=== PATIENT | male | born 1965 | race Caucasian/White ===

== ENCOUNTER 2020-12-26 15:44 | Inpatient (IN) ==
[2020-12-26 16:46] LABS: Basophils % 0.1 %; Hemoglobin 13.7 g/dL (12.9-16.9); Immature Granulocytes % 0.7 % (0-4); Lymphocytes # 0.6 K/mcL (0.6-4.6); Lymphocytes % 8.5 %; Mean Corpuscular HGB Conc 33.4 g/dL (31.6-35.5); Mean Corpuscular Hemoglobin 31.1 pg (28.0-33.3); Mean Platelet Volume 9.1 fL (9.4-12.4); Monocytes # 0.5 K/mcL (0.0-1.3); Monocytes % 6.9 %; Neutrophils # 6.2 K/mcL (1.6-8.9); Platelet Count 185 K/mcL (140-400); Red Blood Count 4.41 M/mcL (4.19-5.50); Red Cell Distribution Width 13.6 % (11.5-14.5); Segmented Neutrophils % 83.8 %; White Blood Count 7.4 K/mcL (4.3-11.1)
[2020-12-26 17:13] LABS: Alanine Aminotransferase 39 Units/L (7-52); Albumin 4.6 g/dL (3.5-5.7); Albumin/Globulin Ratio 1.6 (1.1-2.2); Alkaline Phosphatase 78 Units/L (34-104); Aspartate Amino Transferase 29 Units/L (13-39); BUN/Creatinine Ratio 16 (6-26); Bilirubin,Direct 0.1 mg/dL (0.0-0.2); Bilirubin,Indirect 0.5 mg/dL (0.0-1.0); Bilirubin,Total 0.6 mg/dL (0.3-1.0); Blood Urea Nitrogen 17 mg/dL (6-20); C-Reactive Protein 154 mg/L (Less than 10); Calcium 8.8 mg/dL (8.6-10.3); Carbon Dioxide 23 mEq/L (23-29); Chloride 99 mEq/L (98-107); Globulin 2.8 g/dL (2.4-3.5); Glucose 138 mg/dL (70-105); Lactate Dehydrogenase 178 Units/L (140-271); Osmolality,Calculated 286 (280-300); Phosphorous 3.2 mg/dL (2.7-4.5); Potassium 3.1 mEq/L (3.5-5.1); Sodium 136 mEq/L (136-145); Total Protein 7.4 g/dL (6.4-8.9); eGFR For African Americans > 60 (> 60); eGFR For Non-African Americans > 60 (> 60)
[2020-12-26] MEDS ORDERED: Isovue-370 500 ML BOTTLE IVP ONE (17:13)
[2020-12-26 17:14] LABS: Ferritin 586 ng/mL (20-250)
[2020-12-26 17:23] LABS: INR 1.2; Prothrombin Time 13.6 Seconds (9.4-12.1)
[2020-12-26 17:25] LABS: Activated Partial Thrombo Time 34.4 Seconds (26.0-36.0)
[2020-12-26] MEDS ORDERED: Aspirin 325 MG TABLET PO ONE (18:41)
[2020-12-27] MEDS: Acetaminophen 325 MG TABLET PO PRN ×2 (04:52→15:01)
[2020-12-27] MEDS ORDERED: Perflutren Lipid Microsphere 1.3 ML in 0.9 % Sodium Chloride 8.7 ML IVP PRN (08:11)
[2020-12-27] MEDS ORDERED: Naloxone 0.4 MG/ML INJ IVP PRN (08:11)
[2020-12-27] MEDS ORDERED: Melatonin 3 MG TABLET PO PRN (08:11)
[2020-12-27] MEDS ORDERED: Ondansetron 4 MG/2 ML VIAL IVP PRN (08:11)
[2020-12-27] MEDS ORDERED: MOM Conc 10 ML UD.LIQ PO PRN (08:11)
[2020-12-27] MEDS ORDERED: Mag Hydrox/Al Hydrox/Simeth 30 ML UDC PO PRN (08:11)
[2020-12-27] MEDS ORDERED: Ipratropium/Albuterol Neb 3 ML IH PRN (08:18)
[2020-12-27] MEDS: Aspirin Enteric Coated 81 MG Tablet PO SCH (09:28)
[2020-12-27] MEDS: allopurinoL 100 MG TABLET PO SCH ×2 (09:28→20:57)
[2020-12-27] MEDS: cefTRIAXone 1,000 MG in 0.9 % Sodium Chloride Mini Bag 100 ML IVPB SCH (09:29)
[2020-12-27] MEDS: Azithromycin 500 MG in 0.9 % Sodium Chloride 250 ML IVPB SCH (10:07)
[2020-12-27 10:33] LABS: Hematocrit 41.6 % (37.5-50.1); Hemoglobin 13.8 g/dL (12.9-16.9); Mean Corpuscular HGB Conc 33.2 g/dL (31.6-35.5); Mean Corpuscular Hemoglobin 31.9 pg (28.0-33.3); Mean Corpuscular Volume 96.3 fL (83.0-100.0); Mean Platelet Volume 9.3 fL (9.4-12.4); Platelet Count 177 K/mcL (140-400); Red Blood Count 4.32 M/mcL (4.19-5.50); White Blood Count 4.4 K/mcL (4.3-11.1)
[2020-12-27 10:58] LABS: BUN/Creatinine Ratio 17 (6-26); Blood Urea Nitrogen 17 mg/dL (6-20); Calcium 8.6 mg/dL (8.6-10.3); Carbon Dioxide 28 mEq/L (23-29); Chloride 101 mEq/L (98-107); Glucose 234 mg/dL (70-105); Magnesium 2.2 mg/dL (1.6-2.6); Osmolality,Calculated 295 (280-300); Potassium 3.1 mEq/L (3.5-5.1); Sodium 138 mEq/L (136-145); Troponin I 0.08 ng/mL (< 0.04); eGFR For African Americans > 60 (> 60); eGFR For Non-African Americans > 60 (> 60)
[2020-12-27] MEDS: Dexamethasone 4 MG/ML VIAL IVP SCH (11:17)
[2020-12-27] MEDS ORDERED: Potassium Chloride Elixir 20 MEQ/15 ML UDC PO ONE (14:09)
[2020-12-27] MEDS ORDERED: Potassium Chloride 20 MEQ, Lidocaine 1% 2 ML in 0.9 % Sodium Chloride 250 ML IVPB ONE (14:09)
[2020-12-27] MEDS ORDERED: *HR* LORazepam 2 MG/ML VIAL IVP PRN ×3 (14:10)
[2020-12-27] MEDS: Folic Acid 1 MG TABLET PO SCH (14:43)
[2020-12-27] MEDS: Thiamine (B-1) 100 MG TABLET PO SCH (14:43)
[2020-12-28 00:59] LABS: Hematocrit 43.6 % (37.5-50.1); Hemoglobin 14.1 g/dL (12.9-16.9); Mean Corpuscular HGB Conc 32.3 g/dL (31.6-35.5); Mean Corpuscular Hemoglobin 30.6 pg (28.0-33.3); Mean Corpuscular Volume 94.6 fL (83.0-100.0); Mean Platelet Volume 8.9 fL (9.4-12.4); Platelet Count 201 K/mcL (140-400); Red Blood Count 4.61 M/mcL (4.19-5.50); Red Cell Distribution Width 13.8 % (11.5-14.5); White Blood Count 3.9 K/mcL (4.3-11.1)
[2020-12-28 01:24] LABS: BUN/Creatinine Ratio 17 (6-26); Blood Urea Nitrogen 17 mg/dL (6-20); Carbon Dioxide 27 mEq/L (23-29); Chloride 104 mEq/L (98-107); Glucose 134 mg/dL (70-105); Osmolality,Calculated 290 (280-300); Sodium 138 mEq/L (136-145); eGFR For African Americans > 60 (> 60); eGFR For Non-African Americans > 60 (> 60)
[2020-12-28] MEDS ORDERED: *HR* Enoxaparin 40 MG/0.4 ML SYRINGE SQ SCH (06:00)
[2020-12-28 07:25] VITALS: BP 137/86
[2020-12-28] MEDS ORDERED: lisinopriL 20 MG TABLET PO SCH (09:00)
[2020-12-28] MEDS ORDERED: (Ezetimibe [Zetia] 10 MG Tablet) PO SCH (09:00)
[2020-12-28] MEDS ORDERED: hydroCHLOROthiazide 25 MG TABLET PO SCH (09:00)
[2020-12-28] MEDS: Dexamethasone 4 MG/ML VIAL IVP SCH (10:48)
[2020-12-28] MEDS: Folic Acid 1 MG TABLET PO SCH (10:50)
[2020-12-28] MEDS: Aspirin Enteric Coated 81 MG Tablet PO SCH (10:50)
[2020-12-28] MEDS: allopurinoL 100 MG TABLET PO SCH (10:50)
[2020-12-28] MEDS: cefTRIAXone 1,000 MG in 0.9 % Sodium Chloride Mini Bag 100 ML IVPB SCH (10:51)
[2020-12-28] MEDS: Azithromycin 500 MG in 0.9 % Sodium Chloride 250 ML IVPB SCH (10:51)
[2020-12-28] MEDS: Thiamine (B-1) 100 MG TABLET PO SCH (11:46)
[2020-12-29] MEDS ORDERED: Azithromycin 250 MG TABLET PO SCH (09:00)
== END 2020-12-28 16:55 | disposition home health service (06) | DRG 177 ==
LOC: 2NENU 15:44 → EMEROOARM 15:44 → SUATTDRO 20:32 → 2NENU 21:17
PROVIDERS: ADMIT Internal Medicine; ATTEND Internal Medicine

== ENCOUNTER 2020-12-30 16:56 | Inpatient (IN) ==
[2020-12-30] MEDS ORDERED: Acetaminophen 325 MG TABLET PO ONE (17:16)
[2020-12-30 17:54] LABS: Basophils % 0.1 %; Hematocrit 40.2 % (37.5-50.1); Hemoglobin 13.5 g/dL (12.9-16.9); Lymphocytes # 0.5 K/mcL (0.6-4.6); Lymphocytes % 6.2 %; Mean Corpuscular HGB Conc 33.6 g/dL (31.6-35.5); Mean Corpuscular Volume 92.2 fL (83.0-100.0); Mean Platelet Volume 9.3 fL (9.4-12.4); Monocytes # 0.4 K/mcL (0.0-1.3); Monocytes % 4.5 %; Neutrophils # 6.8 K/mcL (1.6-8.9); Platelet Count 221 K/mcL (140-400); Red Blood Count 4.36 M/mcL (4.19-5.50); Red Cell Distribution Width 13.8 % (11.5-14.5); Segmented Neutrophils % 88.2 %
[2020-12-30 17:56] LABS: White Blood Count 7.7 K/mcL (4.3-11.1)
[2020-12-30 18:03] LABS: INR 1.2; Prothrombin Time 13.5 Seconds (9.4-12.1)
[2020-12-30 18:05] LABS: Activated Partial Thrombo Time 28.3 Seconds (26.0-36.0)
[2020-12-30 18:17] LABS: Alanine Aminotransferase 75 Units/L (7-52); Albumin 4.2 g/dL (3.5-5.7); Albumin/Globulin Ratio 1.3 (1.1-2.2); Alkaline Phosphatase 65 Units/L (34-104); Aspartate Amino Transferase 59 Units/L (13-39); BUN/Creatinine Ratio 19 (6-26); Bilirubin,Direct 0.1 mg/dL (0.0-0.2); Bilirubin,Indirect 0.4 mg/dL (0.0-1.0); Bilirubin,Total 0.5 mg/dL (0.3-1.0); Blood Urea Nitrogen 16 mg/dL (6-20); C-Reactive Protein 91 mg/L (Less than 10); Calcium 8.8 mg/dL (8.6-10.3); Carbon Dioxide 25 mEq/L (23-29); Chloride 101 mEq/L (98-107); Globulin 3.2 g/dL (2.4-3.5); Glucose 193 mg/dL (70-105); Lactate Dehydrogenase 359 Units/L (140-271); Magnesium 2.2 mg/dL (1.6-2.6); Osmolality,Calculated 292 (280-300); Phosphorous 3.5 mg/dL (2.7-4.5); Potassium 3.6 mEq/L (3.5-5.1); Sodium 138 mEq/L (136-145); Total Protein 7.4 g/dL (6.4-8.9); Troponin I < 0.03 ng/mL (< 0.04); eGFR For African Americans > 60 (> 60); eGFR For Non-African Americans > 60 (> 60)
[2020-12-30 18:35] LABS: Ferritin 1287 ng/mL (20-250)
[2020-12-30 18:40] LABS: Bilirubin,Urine Negative (Negative); Blood,Urine Small (Negative); Clarity,Urine Clear (Clear); Color,Urine Light-Yellow (Yellow); Glucose,Urine (UA) Normal (Normal); Ketones,Urine Negative (Negative); Leukocyte Esterase,Urine Negative (Negative); Mucus,Urine Few per lpf (None-Few); Nitrite,Urine Negative (Negative); PH,Urine 6.5 pH Units (5.0-8.0); Protein,Urine 70 mg/dL (Neg-Trace); RBC,Urine 0-3 per hpf (0-3); Specific Gravity,Urine 1.023 (1.010-1.025); Squamous Epithelial Cell,Urine Few per hpf (None-Few); Urobilinogen,Urine Normal (Normal); WBC,Urine 0-3 per hpf (0-3)
[2020-12-30] MEDS ORDERED: Naloxone 0.4 MG/ML INJ IVP PRN (19:28)
[2020-12-30] MEDS ORDERED: Acetaminophen 325 MG TABLET PO PRN (19:28)
[2020-12-30] MEDS ORDERED: Ondansetron 4 MG/2 ML VIAL IVP PRN (19:28)
[2020-12-30] MEDS ORDERED: Remdesivir 200 MG in 0.9 % Sodium Chloride 100 ML IVPB ONE ×2 (19:30→21:15)
[2020-12-30] MEDS ORDERED: D5% in Water 1,000 ML IVC PRN (19:32)
[2020-12-30] MEDS ORDERED: Dextrose Gel 15 GM/37.5 ML TUBE PO PRN ×2 (19:32)
[2020-12-30] MEDS ORDERED: *HR* Dextrose 50 % in Water (Vial) 50 ML VIAL IVP PRN (19:32)
[2020-12-30 19:35] LABS: ABG Base Excess 2 mEq/L (-2 to 3); ABG HCO3 27 mEq/L (21-27); ABG Oxygen Saturation 95 % (95-98); ABG PCO2 42 mmHg (35-45); ABG PH 7.41 pH Units (7.32-7.45); ABG PO2 77 mmHg (85-104); ABG TCO2 28 mEq/L (20-26); Blood Gas Modality OXYMASK
[2020-12-30] MEDS: Insulin LISPRO 300 UNITS/3 ML VIAL SUBQ SCH ×2 (22:11→22:12)
[2020-12-31 05:33] LABS: Basophils % 0.1 %; Hematocrit 41.2 % (37.5-50.1); Hemoglobin 13.6 g/dL (12.9-16.9); Immature Granulocytes % 0.8 % (0-4); Lymphocytes # 0.6 K/mcL (0.6-4.6); Lymphocytes % 7.9 %; Mean Corpuscular Hemoglobin 30.6 pg (28.0-33.3); Mean Corpuscular Volume 92.8 fL (83.0-100.0); Mean Platelet Volume 9.5 fL (9.4-12.4); Monocytes # 0.4 K/mcL (0.0-1.3); Monocytes % 6.2 %; Neutrophils # 6.1 K/mcL (1.6-8.9); Platelet Count 232 K/mcL (140-400); Red Blood Count 4.44 M/mcL (4.19-5.50); Red Cell Distribution Width 13.8 % (11.5-14.5); White Blood Count 7.1 K/mcL (4.3-11.1)
[2020-12-31 05:42] LABS: INR 1.1; Prothrombin Time 13.1 Seconds (9.4-12.1)
[2020-12-31 05:54] LABS: Alanine Aminotransferase 68 Units/L (7-52); Albumin/Globulin Ratio 1.3 (1.1-2.2); Alkaline Phosphatase 62 Units/L (34-104); Aspartate Amino Transferase 44 Units/L (13-39); BUN/Creatinine Ratio 20 (6-26); Bilirubin,Total 0.4 mg/dL (0.3-1.0); Blood Urea Nitrogen 16 mg/dL (6-20); Calcium 8.9 mg/dL (8.6-10.3); Carbon Dioxide 26 mEq/L (23-29); Chloride 104 mEq/L (98-107); Globulin 3.1 g/dL (2.4-3.5); Glucose 198 mg/dL (70-105); Magnesium 2.5 mg/dL (1.6-2.6); Osmolality,Calculated 295 (280-300); Sodium 139 mEq/L (136-145); Total Protein 7.1 g/dL (6.4-8.9); eGFR For African Americans > 60 (> 60); eGFR For Non-African Americans > 60 (> 60)
[2020-12-31 05:55] LABS: C-Reactive Protein 92 mg/L (Less than 10); Lactate Dehydrogenase 347 Units/L (140-271)
[2020-12-31 06:11] LABS: Ferritin 1234 ng/mL (20-250)
[2020-12-31] MEDS: Aspirin Enteric Coated 81 MG Tablet PO SCH (08:42)
[2020-12-31] MEDS: lisinopriL 10 MG TABLET PO SCH (08:42)
[2020-12-31] MEDS: Insulin LISPRO 300 UNITS/3 ML VIAL SUBQ SCH ×5 (08:43→21:06)
[2020-12-31] MEDS: allopurinoL 100 MG TABLET PO SCH ×2 (08:43→20:47)
[2020-12-31] MEDS: *HR* Enoxaparin 40 MG/0.4 ML SYRINGE SQ SCH (08:43)
[2020-12-31] MEDS: Dexamethasone 4 MG/ML VIAL IVP SCH (08:43)
[2020-12-31] MEDS: hydroCHLOROthiazide 25 MG TABLET PO SCH (08:43)
[2020-12-31] MEDS: Azithromycin 500 MG in 0.9 % Sodium Chloride 250 ML IVPB SCH (08:44)
[2020-12-31 13:34] LABS: Estimated Average Glucose 126 mg/dl
[2020-12-31] MEDS: Remdesivir 100 MG in 0.9 % Sodium Chloride 100 ML IVPB SCH (20:48)
[2020-12-31] MEDS: Melatonin 3 MG TABLET PO PRN (23:21)
[2021-01-01] MEDS: lisinopriL 10 MG TABLET PO SCH (09:08)
[2021-01-01] MEDS: Azithromycin 500 MG in 0.9 % Sodium Chloride 250 ML IVPB SCH (09:09)
[2021-01-01] MEDS: hydroCHLOROthiazide 25 MG TABLET PO SCH (09:09)
[2021-01-01] MEDS: allopurinoL 100 MG TABLET PO SCH ×2 (09:09→22:21)
[2021-01-01] MEDS: Aspirin Enteric Coated 81 MG Tablet PO SCH (09:09)
[2021-01-01] MEDS: *HR* Enoxaparin 40 MG/0.4 ML SYRINGE SQ SCH (09:09)
[2021-01-01] MEDS: Insulin LISPRO 300 UNITS/3 ML VIAL SUBQ SCH ×3 (09:16→22:21)
[2021-01-01] MEDS: Dexamethasone 4 MG/ML VIAL IVP SCH (09:31)
[2021-01-01 09:44] LABS: Basophils % 0.2 %; Hematocrit 45.9 % (37.5-50.1); Lymphocytes # 1.4 K/mcL (0.6-4.6); Mean Corpuscular HGB Conc 32.9 g/dL (31.6-35.5); Mean Corpuscular Hemoglobin 31.3 pg (28.0-33.3); Mean Platelet Volume 9.8 fL (9.4-12.4); Monocytes # 0.6 K/mcL (0.0-1.3); Monocytes % 4.1 %; Neutrophils # 11.5 K/mcL (1.6-8.9); Platelet Count 321 K/mcL (140-400); Red Blood Count 4.83 M/mcL (4.19-5.50); Red Cell Distribution Width 13.7 % (11.5-14.5); Segmented Neutrophils % 84.7 %
[2021-01-01 09:45] LABS: White Blood Count 13.6 K/mcL (4.3-11.1)
[2021-01-01 09:46] LABS: Hemoglobin 15.1 g/dL (12.9-16.9)
[2021-01-01 09:57] LABS: BUN/Creatinine Ratio 24 (6-26); Blood Urea Nitrogen 21 mg/dL (6-20); Calcium 9.5 mg/dL (8.6-10.3); Carbon Dioxide 29 mEq/L (23-29); Chloride 99 mEq/L (98-107); Glucose 154 mg/dL (70-105); Magnesium 2.3 mg/dL (1.6-2.6); Osmolality,Calculated 294 (280-300); Phosphorous 4.1 mg/dL (2.7-4.5); Potassium 3.7 mEq/L (3.5-5.1); Sodium 139 mEq/L (136-145); eGFR For African Americans > 60 (> 60); eGFR For Non-African Americans > 60 (> 60)
[2021-01-01] MEDS ORDERED: Perflutren Lipid Microsphere 1.3 ML in 0.9 % Sodium Chloride 8.7 ML IVP PRN (13:05)
[2021-01-01 15:07] LABS: Thyroid Stimulating Hormone 1.489 mcIU/mL (0.340-5.600)
[2021-01-01] MEDS: Remdesivir 100 MG in 0.9 % Sodium Chloride 100 ML IVPB SCH (22:22)
[2021-01-01] MEDS ORDERED: Furosemide 40 MG/4 ML VIAL IVP ONE (22:59)
[2021-01-01] MEDS ORDERED: Furosemide 40 MG/4 ML VIAL ONE (23:04)
[2021-01-02 05:10] LABS: Basophils % 0.3 %; Hematocrit 42.4 % (37.5-50.1); Hemoglobin 13.8 g/dL (12.9-16.9); Immature Granulocytes % 1.9 % (0-4); Lymphocytes # 0.7 K/mcL (0.6-4.6); Lymphocytes % 7.6 %; Mean Corpuscular HGB Conc 32.5 g/dL (31.6-35.5); Mean Corpuscular Volume 95.3 fL (83.0-100.0); Mean Platelet Volume 9.5 fL (9.4-12.4); Monocytes # 0.5 K/mcL (0.0-1.3); Monocytes % 5.5 %; Neutrophils # 8.1 K/mcL (1.6-8.9); Platelet Count 318 K/mcL (140-400); Red Blood Count 4.45 M/mcL (4.19-5.50); Red Cell Distribution Width 13.7 % (11.5-14.5); Segmented Neutrophils % 84.7 %; White Blood Count 9.6 K/mcL (4.3-11.1)
[2021-01-02 05:18] LABS: BUN/Creatinine Ratio 23 (6-26); Blood Urea Nitrogen 23 mg/dL (6-20); Calcium 8.8 mg/dL (8.6-10.3); Carbon Dioxide 33 mEq/L (23-29); Chloride 99 mEq/L (98-107); Glucose 184 mg/dL (70-105); Magnesium 2.3 mg/dL (1.6-2.6); Osmolality,Calculated 298 (280-300); Phosphorous 4.5 mg/dL (2.7-4.5); Sodium 140 mEq/L (136-145); eGFR For African Americans > 60 (> 60); eGFR For Non-African Americans > 60 (> 60)
[2021-01-02 05:20] LABS: Albumin 3.9 g/dL (3.5-5.7); Albumin/Globulin Ratio 1.3 (1.1-2.2); Bilirubin,Direct 0.2 mg/dL (0.0-0.2); Bilirubin,Indirect 0.5 mg/dL (0.0-1.0); Bilirubin,Total 0.7 mg/dL (0.3-1.0); Globulin 2.9 g/dL (2.4-3.5); Total Protein 6.8 g/dL (6.4-8.9)
[2021-01-02] MEDS: Insulin LISPRO 300 UNITS/3 ML VIAL SUBQ SCH ×4 (09:39→21:17)
[2021-01-02] MEDS: *HR* Enoxaparin 40 MG/0.4 ML SYRINGE SQ SCH (09:40)
[2021-01-02] MEDS: lisinopriL 10 MG TABLET PO SCH (09:40)
[2021-01-02] MEDS: hydroCHLOROthiazide 25 MG TABLET PO SCH (09:41)
[2021-01-02] MEDS: Dexamethasone 4 MG/ML VIAL IVP SCH (09:41)
[2021-01-02] MEDS: Furosemide 20 MG/2 ML VIAL IVP SCH (09:42)
[2021-01-02] MEDS: allopurinoL 100 MG TABLET PO SCH ×2 (09:42→21:16)
[2021-01-02] MEDS: Aspirin Enteric Coated 81 MG Tablet PO SCH (09:43)
[2021-01-02] MEDS: Remdesivir 100 MG in 0.9 % Sodium Chloride 100 ML IVPB SCH (21:36)
[2021-01-03 06:00] LABS: Basophils % 0.4 %; Hematocrit 43.2 % (37.5-50.1); Immature Granulocytes % 2.3 % (0-4); Lymphocytes % 8.5 %; Mean Corpuscular HGB Conc 32.4 g/dL (31.6-35.5); Mean Corpuscular Hemoglobin 30.9 pg (28.0-33.3); Mean Corpuscular Volume 95.4 fL (83.0-100.0); Mean Platelet Volume 9.7 fL (9.4-12.4); Monocytes # 0.6 K/mcL (0.0-1.3); Monocytes % 5.3 %; Platelet Count 354 K/mcL (140-400); Red Blood Count 4.53 M/mcL (4.19-5.50); Red Cell Distribution Width 13.8 % (11.5-14.5); Segmented Neutrophils % 83.5 %; White Blood Count 11.2 K/mcL (4.3-11.1)
[2021-01-03 06:05] LABS: Neutrophils # 9.4 K/mcL (1.6-8.9)
[2021-01-03 06:22] LABS: BUN/Creatinine Ratio 36 (6-26); Blood Urea Nitrogen 35 mg/dL (6-20); Calcium 9.2 mg/dL (8.6-10.3); Carbon Dioxide 34 mEq/L (23-29); Chloride 100 mEq/L (98-107); Glucose 183 mg/dL (70-105); Magnesium 2.7 mg/dL (1.6-2.6); Osmolality,Calculated 307 (280-300); Phosphorous 4.3 mg/dL (2.7-4.5); Potassium 4.6 mEq/L (3.5-5.1); Sodium 142 mEq/L (136-145); eGFR For African Americans > 60 (> 60); eGFR For Non-African Americans > 60 (> 60)
[2021-01-03 06:25] LABS: Albumin 3.8 g/dL (3.5-5.7); Albumin/Globulin Ratio 1.3 (1.1-2.2); Bilirubin,Direct 0.2 mg/dL (0.0-0.2); Bilirubin,Indirect 0.5 mg/dL (0.0-1.0); Bilirubin,Total 0.7 mg/dL (0.3-1.0); Globulin 2.9 g/dL (2.4-3.5); Total Protein 6.7 g/dL (6.4-8.9)
[2021-01-03 06:29] LABS: Platelet Estimate Normal (Normal); Reactive Lymphocytes Present (Not Present)
[2021-01-03] MEDS: Aspirin Enteric Coated 81 MG Tablet PO SCH (08:02)
[2021-01-03] MEDS: allopurinoL 100 MG TABLET PO SCH ×2 (08:02→22:10)
[2021-01-03] MEDS: Dexamethasone 4 MG/ML VIAL IVP SCH (08:03)
[2021-01-03] MEDS: *HR* Enoxaparin 40 MG/0.4 ML SYRINGE SQ SCH (08:03)
[2021-01-03] MEDS: Furosemide 20 MG/2 ML VIAL IVP SCH (08:03)
[2021-01-03] MEDS: lisinopriL 10 MG TABLET PO SCH (08:03)
[2021-01-03] MEDS: Insulin LISPRO 300 UNITS/3 ML VIAL SUBQ SCH ×4 (08:04→22:11)
[2021-01-03] MEDS: Budesonide/Formoterol 160/4.5 1 PUFF INH IH SCH (19:40)
[2021-01-03] MEDS: Remdesivir 100 MG in 0.9 % Sodium Chloride 100 ML IVPB SCH (22:10)
[2021-01-03] MEDS: Insulin DETEMIR 100 UNIT/ML X5UNITS SUBQ SCH (22:11)
[2021-01-04 04:47] LABS: Basophils # 0.1 K/mcL (0.0-0.2); Basophils % 0.4 %; Hematocrit 39.5 % (37.5-50.1); Hemoglobin 12.9 g/dL (12.9-16.9); Immature Granulocytes % 1.7 % (0-4); Lymphocytes # 1.1 K/mcL (0.6-4.6); Lymphocytes % 6.6 %; Mean Corpuscular HGB Conc 32.7 g/dL (31.6-35.5); Mean Corpuscular Hemoglobin 30.3 pg (28.0-33.3); Mean Corpuscular Volume 92.7 fL (83.0-100.0); Mean Platelet Volume 9.5 fL (9.4-12.4); Monocytes # 0.8 K/mcL (0.0-1.3); Monocytes % 4.8 %; Neutrophils # 13.9 K/mcL (1.6-8.9); Platelet Count 369 K/mcL (140-400); Red Blood Count 4.26 M/mcL (4.19-5.50); Red Cell Distribution Width 13.5 % (11.5-14.5); Segmented Neutrophils % 86.5 %; White Blood Count 16.1 K/mcL (4.3-11.1)
[2021-01-04 05:01] LABS: Fibrinogen 573 mg/dL (169-393)
[2021-01-04 05:02] LABS: D-Dimer 2135 ng/mLFEU (0-500)
[2021-01-04 05:03] LABS: BUN/Creatinine Ratio 41 (6-26); Blood Urea Nitrogen 35 mg/dL (6-20); Calcium 8.8 mg/dL (8.6-10.3); Carbon Dioxide 33 mEq/L (23-29); Chloride 101 mEq/L (98-107); Glucose 186 mg/dL (70-105); Magnesium 2.5 mg/dL (1.6-2.6); Osmolality,Calculated 303 (280-300); Phosphorous 4.1 mg/dL (2.7-4.5); Potassium 4.3 mEq/L (3.5-5.1); Sodium 140 mEq/L (136-145); eGFR For African Americans > 60 (> 60); eGFR For Non-African Americans > 60 (> 60)
[2021-01-04 05:08] LABS: Lactate Dehydrogenase 574 Units/L (140-271)
[2021-01-04 05:25] LABS: Ferritin > 1500 ng/mL (20-250)
[2021-01-04] MEDS: Budesonide/Formoterol 160/4.5 1 PUFF INH IH SCH ×2 (07:37→20:38)
[2021-01-04] MEDS: Insulin DETEMIR 100 UNIT/ML X5UNITS SUBQ SCH ×2 (07:39→20:41)
[2021-01-04] MEDS: Furosemide 20 MG/2 ML VIAL IVP SCH (07:39)
[2021-01-04] MEDS: lisinopriL 10 MG TABLET PO SCH (07:40)
[2021-01-04] MEDS: Aspirin Enteric Coated 81 MG Tablet PO SCH (07:41)
[2021-01-04] MEDS: *HR* Enoxaparin 40 MG/0.4 ML SYRINGE SQ SCH (07:41)
[2021-01-04] MEDS: Insulin LISPRO 300 UNITS/3 ML VIAL SUBQ SCH ×4 (07:41→20:41)
[2021-01-04] MEDS: allopurinoL 100 MG TABLET PO SCH ×2 (07:41→20:40)
[2021-01-04] MEDS: Dexamethasone 4 MG/ML VIAL IVP SCH (07:42)
[2021-01-04] MEDS: Sennosides/Docusate Sodium TABLET PO SCH (20:40)
[2021-01-05 06:49] LABS: Basophils # 0.1 K/mcL (0.0-0.2); Basophils % 0.3 %; Eosinophils % 0.1 %; Hematocrit 42.6 % (37.5-50.1); Hemoglobin 13.5 g/dL (12.9-16.9); Immature Granulocytes % 1.5 % (0-4); Lymphocytes # 1.1 K/mcL (0.6-4.6); Lymphocytes % 6.1 %; Mean Corpuscular HGB Conc 31.7 g/dL (31.6-35.5); Mean Corpuscular Hemoglobin 29.9 pg (28.0-33.3); Mean Corpuscular Volume 94.5 fL (83.0-100.0); Mean Platelet Volume 9.8 fL (9.4-12.4); Monocytes # 0.6 K/mcL (0.0-1.3); Monocytes % 3.1 %; Neutrophils # 16.1 K/mcL (1.6-8.9); Platelet Count 376 K/mcL (140-400); Red Blood Count 4.51 M/mcL (4.19-5.50); Red Cell Distribution Width 13.5 % (11.5-14.5); Segmented Neutrophils % 88.9 %; White Blood Count 18.2 K/mcL (4.3-11.1)
[2021-01-05] MEDS: Budesonide/Formoterol 160/4.5 1 PUFF INH IH SCH ×2 (07:15→21:35)
[2021-01-05 07:44] LABS: Albumin 3.7 g/dL (3.5-5.7); Albumin/Globulin Ratio 1.3 (1.1-2.2); Bilirubin,Direct 0.2 mg/dL (0.0-0.2); Bilirubin,Indirect 0.7 mg/dL (0.0-1.0); Bilirubin,Total 0.9 mg/dL (0.3-1.0); Globulin 2.9 g/dL (2.4-3.5); Total Protein 6.6 g/dL (6.4-8.9)
[2021-01-05] MEDS: Insulin LISPRO 300 UNITS/3 ML VIAL SUBQ SCH ×7 (08:04→19:58)
[2021-01-05] MEDS: *HR* Enoxaparin 40 MG/0.4 ML SYRINGE SQ SCH (08:05)
[2021-01-05] MEDS: Aspirin Enteric Coated 81 MG Tablet PO SCH (08:05)
[2021-01-05] MEDS: allopurinoL 100 MG TABLET PO SCH ×2 (08:05→19:59)
[2021-01-05] MEDS: lisinopriL 10 MG TABLET PO SCH (08:05)
[2021-01-05] MEDS: Sennosides/Docusate Sodium TABLET PO SCH ×2 (08:05→19:59)
[2021-01-05] MEDS: Dexamethasone 4 MG/ML VIAL IVP SCH (08:06)
[2021-01-05] MEDS: Furosemide 20 MG/2 ML VIAL IVP SCH ×2 (08:06→19:59)
[2021-01-05 09:00] LABS: BUN/Creatinine Ratio 39 (6-26); Blood Urea Nitrogen 31 mg/dL (6-20); Carbon Dioxide 29 mEq/L (23-29); Chloride 102 mEq/L (98-107); Glucose 149 mg/dL (70-105); Magnesium 2.4 mg/dL (1.6-2.6); Osmolality,Calculated 301 (280-300); Phosphorous 4.2 mg/dL (2.7-4.5); Potassium 4.6 mEq/L (3.5-5.1); Sodium 141 mEq/L (136-145); eGFR For African Americans > 60 (> 60); eGFR For Non-African Americans > 60 (> 60)
[2021-01-05] MEDS: Insulin DETEMIR 100 UNIT/ML X5UNITS SUBQ SCH ×2 (11:17→19:57)
[2021-01-05] MEDS ORDERED: 0.9 % Sodium Chloride 250 ML ONE (14:05)
[2021-01-06] MEDS: Insulin LISPRO 300 UNITS/3 ML VIAL SUBQ SCH ×7 (07:29→21:23)
[2021-01-06] MEDS: Furosemide 20 MG/2 ML VIAL IVP SCH (07:39)
[2021-01-06] MEDS: *HR* Enoxaparin 40 MG/0.4 ML SYRINGE SQ SCH (07:39)
[2021-01-06] MEDS: Dexamethasone 4 MG/ML VIAL IVP SCH (07:39)
[2021-01-06] MEDS: Insulin DETEMIR 100 UNIT/ML X5UNITS SUBQ SCH ×2 (07:39→21:23)
[2021-01-06] MEDS: allopurinoL 100 MG TABLET PO SCH ×2 (07:40→21:23)
[2021-01-06] MEDS: Sennosides/Docusate Sodium TABLET PO SCH ×2 (07:40→21:22)
[2021-01-06] MEDS: Aspirin Enteric Coated 81 MG Tablet PO SCH (07:40)
[2021-01-06] MEDS: lisinopriL 10 MG TABLET PO SCH (07:40)
[2021-01-06] MEDS: Budesonide/Formoterol 160/4.5 1 PUFF INH IH SCH ×2 (08:27→20:30)
[2021-01-06 09:20] LABS: Basophils % 0.2 %; Eosinophils % 0.2 %; Hematocrit 43.2 % (37.5-50.1); Hemoglobin 14.2 g/dL (12.9-16.9); Immature Granulocytes % 1.6 % (0-4); Lymphocytes # 0.9 K/mcL (0.6-4.6); Lymphocytes % 5.1 %; Mean Corpuscular HGB Conc 32.9 g/dL (31.6-35.5); Mean Corpuscular Hemoglobin 31.1 pg (28.0-33.3); Mean Corpuscular Volume 94.7 fL (83.0-100.0); Mean Platelet Volume 9.6 fL (9.4-12.4); Monocytes # 0.4 K/mcL (0.0-1.3); Monocytes % 2.2 %; Neutrophils # 16.4 K/mcL (1.6-8.9); Platelet Count 339 K/mcL (140-400); Red Blood Count 4.56 M/mcL (4.19-5.50); Red Cell Distribution Width 13.7 % (11.5-14.5); Segmented Neutrophils % 90.7 %
[2021-01-06 09:40] LABS: BUN/Creatinine Ratio 35 (6-26); Blood Urea Nitrogen 30 mg/dL (6-20); Calcium 9.1 mg/dL (8.6-10.3); Carbon Dioxide 34 mEq/L (23-29); Chloride 98 mEq/L (98-107); Glucose 129 mg/dL (70-105); Magnesium 2.4 mg/dL (1.6-2.6); Osmolality,Calculated 294 (280-300); Phosphorous 3.9 mg/dL (2.7-4.5); Potassium 4.3 mEq/L (3.5-5.1); Sodium 138 mEq/L (136-145); eGFR For African Americans > 60 (> 60); eGFR For Non-African Americans > 60 (> 60)
[2021-01-07] MEDS: Insulin LISPRO 300 UNITS/3 ML VIAL SUBQ SCH ×9 (08:24→21:32)
[2021-01-07] MEDS: Dexamethasone 4 MG/ML VIAL IVP SCH (08:25)
[2021-01-07] MEDS: Furosemide 20 MG/2 ML VIAL IVP SCH (08:26)
[2021-01-07] MEDS: allopurinoL 100 MG TABLET PO SCH ×2 (08:27→21:30)
[2021-01-07] MEDS: Sennosides/Docusate Sodium TABLET PO SCH ×2 (08:27→21:30)
[2021-01-07] MEDS: Aspirin Enteric Coated 81 MG Tablet PO SCH (08:27)
[2021-01-07] MEDS: lisinopriL 10 MG TABLET PO SCH (08:27)
[2021-01-07] MEDS: *HR* Enoxaparin 40 MG/0.4 ML SYRINGE SQ SCH (08:28)
[2021-01-07] MEDS: Insulin DETEMIR 100 UNIT/ML X5UNITS SUBQ SCH ×2 (08:33→21:31)
[2021-01-07 09:27] LABS: Fibrinogen 432 mg/dL (169-393)
[2021-01-07 09:53] LABS: D-Dimer 22919 ng/mLFEU (0-500)
[2021-01-07 10:22] LABS: Albumin 3.4 g/dL (3.5-5.7); Albumin/Globulin Ratio 1.2 (1.1-2.2); Bilirubin,Direct 0.2 mg/dL (0.0-0.2); Bilirubin,Indirect 0.6 mg/dL (0.0-1.0); Bilirubin,Total 0.8 mg/dL (0.3-1.0); Globulin 2.9 g/dL (2.4-3.5); Magnesium 2.3 mg/dL (1.6-2.6); Phosphorous 3.7 mg/dL (2.7-4.5); Total Protein 6.3 g/dL (6.4-8.9)
[2021-01-07] MEDS: Budesonide/Formoterol 160/4.5 1 PUFF INH IH SCH ×2 (10:37→20:52)
[2021-01-07] MEDS ORDERED: Enoxaparin Weight Dosing SQ SCH (11:45)
[2021-01-07] MEDS ORDERED: Isovue-370 500 ML BOTTLE IVP ONE (11:49)
[2021-01-07] MEDS: Melatonin 3 MG TABLET PO PRN (21:30)
[2021-01-08 01:28] LABS: Basophils # 0.1 K/mcL (0.0-0.2); Basophils % 0.3 %; Eosinophils % 0.1 %; Hematocrit 39.2 % (37.5-50.1); Hemoglobin 12.9 g/dL (12.9-16.9); Immature Granulocytes % 2.3 % (0-4); Lymphocytes # 0.5 K/mcL (0.6-4.6); Lymphocytes % 2.9 %; Mean Corpuscular HGB Conc 32.9 g/dL (31.6-35.5); Mean Corpuscular Hemoglobin 31.2 pg (28.0-33.3); Mean Corpuscular Volume 94.9 fL (83.0-100.0); Mean Platelet Volume 9.4 fL (9.4-12.4); Monocytes # 0.4 K/mcL (0.0-1.3); Neutrophils # 16.9 K/mcL (1.6-8.9); Platelet Count 263 K/mcL (140-400); Red Blood Count 4.13 M/mcL (4.19-5.50); Red Cell Distribution Width 13.6 % (11.5-14.5); Segmented Neutrophils % 92.4 %; White Blood Count 18.3 K/mcL (4.3-11.1)
[2021-01-08 01:49] LABS: BUN/Creatinine Ratio 41 (6-26); Blood Urea Nitrogen 30 mg/dL (6-20); Calcium 8.4 mg/dL (8.6-10.3); Carbon Dioxide 27 mEq/L (23-29); Chloride 100 mEq/L (98-107); Glucose 138 mg/dL (70-105); Magnesium 2.4 mg/dL (1.6-2.6); Osmolality,Calculated 290 (280-300); Potassium 4.6 mEq/L (3.5-5.1); Sodium 136 mEq/L (136-145); eGFR For African Americans > 60 (> 60); eGFR For Non-African Americans > 60 (> 60)
[2021-01-08] MEDS ORDERED: *HR* Enoxaparin 40 MG/0.4 ML SYRINGE SQ SCH (06:00)
[2021-01-08] MEDS: Budesonide/Formoterol 160/4.5 1 PUFF INH IH SCH ×2 (08:03→20:01)
[2021-01-08] MEDS: Insulin LISPRO 300 UNITS/3 ML VIAL SUBQ SCH ×7 (10:38→21:46)
[2021-01-08] MEDS: Dexamethasone 4 MG/ML VIAL IVP SCH (10:59)
[2021-01-08] MEDS: Furosemide 20 MG/2 ML VIAL IVP SCH (11:00)
[2021-01-08] MEDS: lisinopriL 10 MG TABLET PO SCH (11:01)
[2021-01-08] MEDS: Sennosides/Docusate Sodium TABLET PO SCH ×2 (11:01→21:46)
[2021-01-08] MEDS: allopurinoL 100 MG TABLET PO SCH ×2 (11:01→21:46)
[2021-01-08] MEDS: Aspirin Enteric Coated 81 MG Tablet PO SCH (11:01)
[2021-01-08] MEDS: Insulin DETEMIR 100 UNIT/ML X5UNITS SUBQ SCH ×2 (12:00→21:46)
[2021-01-08] MEDS ORDERED: *HR* Heparin 5,000 UNIT/ML VIAL IVP ONE (14:20)
[2021-01-08] MEDS ORDERED: *HR* Heparin 5,000 UNIT/ML VIAL IVP PRN ×2 (14:20)
[2021-01-08] MEDS: Heparin 25,000UNIT/250ML 1/2NS 25,000 UNIT/250 ML IV.SOLN IVC SCH (15:00)
[2021-01-08 15:22] LABS: Mean Platelet Volume 9.5 fL (9.4-12.4); Red Cell Distribution Width 13.6 % (11.5-14.5)
[2021-01-08 15:23] LABS: Hematocrit 44.3 % (37.5-50.1); Hemoglobin 14.3 g/dL (12.9-16.9); Mean Corpuscular HGB Conc 32.3 g/dL (31.6-35.5); Mean Corpuscular Hemoglobin 30.5 pg (28.0-33.3); Mean Corpuscular Volume 94.5 fL (83.0-100.0); Platelet Count 286 K/mcL (140-400); Red Blood Count 4.69 M/mcL (4.19-5.50); White Blood Count 25.5 K/mcL (4.3-11.1)
[2021-01-08 15:24] LABS: Heparin anti-factor XA UFH 0.12 IU/mL (0.30-0.70); INR 1.1; Prothrombin Time 12.7 Seconds (9.4-12.1)
[2021-01-08] MEDS: levoFLOXacin 750 MG/150 ML 750 MG/150 ML BAG IVPB SCH (17:38)
[2021-01-08] MEDS: Melatonin 3 MG TABLET PO PRN (21:46)
[2021-01-09] MEDS: Budesonide/Formoterol 160/4.5 1 PUFF INH IH SCH ×2 (08:17→22:31)
[2021-01-09] MEDS: Insulin LISPRO 300 UNITS/3 ML VIAL SUBQ SCH ×7 (09:00→20:54)
[2021-01-09] MEDS: Heparin 25,000UNIT/250ML 1/2NS 25,000 UNIT/250 ML IV.SOLN IVC SCH (09:03)
[2021-01-09] MEDS: Sennosides/Docusate Sodium TABLET PO SCH ×2 (09:05→20:53)
[2021-01-09] MEDS: allopurinoL 100 MG TABLET PO SCH ×2 (09:05→20:53)
[2021-01-09] MEDS: Aspirin Enteric Coated 81 MG Tablet PO SCH (09:05)
[2021-01-09] MEDS: Furosemide 20 MG/2 ML VIAL IVP SCH (09:05)
[2021-01-09] MEDS: Dexamethasone Sodium Phos/PF 10 MG/ML VIAL IVP SCH (09:05)
[2021-01-09] MEDS: Insulin DETEMIR 100 UNIT/ML X5UNITS SUBQ SCH ×2 (09:07→20:53)
[2021-01-09] MEDS: levoFLOXacin 750 MG/150 ML 750 MG/150 ML BAG IVPB SCH (17:01)
[2021-01-10] MEDS: Heparin 25,000UNIT/250ML 1/2NS 25,000 UNIT/250 ML IV.SOLN IVC SCH ×3 (01:35→18:52)
[2021-01-10] MEDS: Budesonide/Formoterol 160/4.5 1 PUFF INH IH SCH (07:30)
[2021-01-10] MEDS: Insulin LISPRO 300 UNITS/3 ML VIAL SUBQ SCH ×6 (07:39→22:03)
[2021-01-10] MEDS: Aspirin Enteric Coated 81 MG Tablet PO SCH (08:38)
[2021-01-10] MEDS: Sennosides/Docusate Sodium TABLET PO SCH ×2 (08:39→20:30)
[2021-01-10] MEDS: Dexamethasone Sodium Phos/PF 10 MG/ML VIAL IVP SCH (08:39)
[2021-01-10] MEDS: allopurinoL 100 MG TABLET PO SCH ×2 (08:39→20:30)
[2021-01-10] MEDS: Loratadine 10 MG TABLET PO SCH (08:39)
[2021-01-10] MEDS: Insulin DETEMIR 100 UNIT/ML X5UNITS SUBQ SCH (08:44)
[2021-01-10] MEDS ORDERED: Furosemide 40 MG/4 ML VIAL IVP SCH (09:00)
[2021-01-10 10:30] LABS: Hematocrit 45.6 % (37.5-50.1); Hemoglobin 15.1 g/dL (12.9-16.9); Mean Corpuscular HGB Conc 33.1 g/dL (31.6-35.5); Mean Corpuscular Hemoglobin 31.4 pg (28.0-33.3); Mean Corpuscular Volume 94.8 fL (83.0-100.0); Mean Platelet Volume 9.5 fL (9.4-12.4); Platelet Count 299 K/mcL (140-400); Red Blood Count 4.81 M/mcL (4.19-5.50); Red Cell Distribution Width 13.8 % (11.5-14.5); White Blood Count 24.1 K/mcL (4.3-11.1)
[2021-01-10 10:39] LABS: VBG HCO3 31 mEq/L (21-27); VBG PCO2 55 mmHg (41-51); VBG PH 7.36 pH Units (7.32-7.42); VBG PO2 43 mmHg (25-50)
[2021-01-10 10:49] LABS: BUN/Creatinine Ratio 29 (6-26); Blood Urea Nitrogen 29 mg/dL (6-20); Calcium 8.9 mg/dL (8.6-10.3); Carbon Dioxide 30 mEq/L (23-29); Chloride 96 mEq/L (98-107); Glucose 144 mg/dL (70-105); Magnesium 2.3 mg/dL (1.6-2.6); Osmolality,Calculated 290 (280-300); Potassium 4.5 mEq/L (3.5-5.1); Sodium 136 mEq/L (136-145); eGFR For African Americans > 60 (> 60); eGFR For Non-African Americans > 60 (> 60)
[2021-01-10 12:35] LABS: Neutrophils # 24.1 K/mcL (1.6-8.9); Platelet Estimate Normal (Normal)
[2021-01-10] MEDS: levoFLOXacin 750 MG/150 ML 750 MG/150 ML BAG IVPB SCH (13:36)
[2021-01-10] MEDS: Ipratropium 1 PUFF INHALER IH SCH ×2 (19:46→23:48)
[2021-01-10] MEDS: Furosemide 40 MG/4 ML VIAL IVP SCH (20:30)
[2021-01-11 00:32] LABS: Basophils # 0.1 K/mcL (0.0-0.2); Basophils % 0.7 %; Eosinophils % 0.2 %; Hematocrit 40.9 % (37.5-50.1); Hemoglobin 13.6 g/dL (12.9-16.9); Immature Granulocytes % 4.8 % (0-4); Lymphocytes # 0.6 K/mcL (0.6-4.6); Mean Corpuscular HGB Conc 33.3 g/dL (31.6-35.5); Mean Corpuscular Hemoglobin 30.3 pg (28.0-33.3); Mean Corpuscular Volume 91.1 fL (83.0-100.0); Mean Platelet Volume 9.6 fL (9.4-12.4); Monocytes # 0.5 K/mcL (0.0-1.3); Monocytes % 2.6 %; Platelet Count 285 K/mcL (140-400); Red Blood Count 4.49 M/mcL (4.19-5.50); Red Cell Distribution Width 13.9 % (11.5-14.5); Segmented Neutrophils % 88.7 %; White Blood Count 20.4 K/mcL (4.3-11.1)
[2021-01-11 00:49] LABS: BUN/Creatinine Ratio 34 (6-26); Blood Urea Nitrogen 33 mg/dL (6-20); Calcium 8.4 mg/dL (8.6-10.3); Carbon Dioxide 29 mEq/L (23-29); Chloride 98 mEq/L (98-107); Glucose 138 mg/dL (70-105); Magnesium 2.5 mg/dL (1.6-2.6); Osmolality,Calculated 289 (280-300); Phosphorous 4.1 mg/dL (2.7-4.5); Potassium 4.1 mEq/L (3.5-5.1); Sodium 135 mEq/L (136-145); eGFR For African Americans > 60 (> 60); eGFR For Non-African Americans > 60 (> 60)
[2021-01-11] MEDS: Ipratropium 1 PUFF INHALER IH SCH ×6 (03:47→23:49)
[2021-01-11] MEDS ORDERED: Doxycycline 100 MG in 0.9 % Sodium Chloride Mini Bag 100 ML IVPB SCH (07:21)
[2021-01-11] MEDS: Aspirin Enteric Coated 81 MG Tablet PO SCH (08:29)
[2021-01-11] MEDS: allopurinoL 100 MG TABLET PO SCH ×2 (08:29→22:39)
[2021-01-11] MEDS: Sennosides/Docusate Sodium TABLET PO SCH ×2 (08:29→22:39)
[2021-01-11] MEDS: Loratadine 10 MG TABLET PO SCH (08:29)
[2021-01-11] MEDS: lisinopriL 5 MG TABLET PO SCH (08:29)
[2021-01-11] MEDS: Dexamethasone Sodium Phos/PF 10 MG/ML VIAL IVP SCH (08:30)
[2021-01-11] MEDS: Furosemide 40 MG/4 ML VIAL IVP SCH ×2 (08:30→22:38)
[2021-01-11] MEDS: Insulin LISPRO 300 UNITS/3 ML VIAL SUBQ SCH ×4 (08:31→21:58)
[2021-01-11] MEDS: Insulin DETEMIR 100 UNIT/ML X5UNITS SUBQ SCH (08:33)
[2021-01-11] MEDS ORDERED: cefTRIAXone 1,000 MG in Water for inj. (sterile) 10 ML IVP SCH (09:00)
[2021-01-11] MEDS: Heparin 25,000UNIT/250ML 1/2NS 25,000 UNIT/250 ML IV.SOLN IVC SCH (12:00)
[2021-01-11] MEDS: Zinc Sulfate 220 MG CAPSULE PO SCH (12:01)
[2021-01-11] MEDS: Cholecalciferol (D-3) 1,000 UNIT (25MCG) TABLET PO SCH (12:01)
[2021-01-11] MEDS: Ascorbic Acid 500 MG TABLET PO SCH ×2 (12:02→22:39)
[2021-01-11] MEDS: levoFLOXacin 750 MG/150 ML 750 MG/150 ML BAG IVPB SCH (15:00)
[2021-01-12 01:17] LABS: Basophils # 0.1 K/mcL (0.0-0.2); Basophils % 0.7 %; Eosinophils % 0.1 %; Hematocrit 42.2 % (37.5-50.1); Hemoglobin 13.5 g/dL (12.9-16.9); Immature Granulocytes % 4.8 % (0-4); Lymphocytes # 0.9 K/mcL (0.6-4.6); Lymphocytes % 4.5 %; Mean Corpuscular Hemoglobin 30.1 pg (28.0-33.3); Mean Corpuscular Volume 94.2 fL (83.0-100.0); Mean Platelet Volume 9.7 fL (9.4-12.4); Monocytes # 0.5 K/mcL (0.0-1.3); Monocytes % 2.6 %; Platelet Count 271 K/mcL (140-400); Red Blood Count 4.48 M/mcL (4.19-5.50); Red Cell Distribution Width 13.9 % (11.5-14.5); Segmented Neutrophils % 87.3 %; White Blood Count 20.7 K/mcL (4.3-11.1)
[2021-01-12 01:29] LABS: BUN/Creatinine Ratio 39 (6-26); Blood Urea Nitrogen 30 mg/dL (6-20); Calcium 6.9 mg/dL (8.6-10.3); Carbon Dioxide 24 mEq/L (23-29); Chloride 106 mEq/L (98-107); Glucose 129 mg/dL (70-105); Magnesium 2.1 mg/dL (1.6-2.6); Osmolality,Calculated 296 (280-300); Potassium 3.7 mEq/L (3.5-5.1); Sodium 139 mEq/L (136-145); eGFR For African Americans > 60 (> 60); eGFR For Non-African Americans > 60 (> 60)
[2021-01-12] MEDS: Ipratropium 1 PUFF INHALER IH SCH ×6 (03:30→23:28)
[2021-01-12] MEDS: Heparin 25,000UNIT/250ML 1/2NS 25,000 UNIT/250 ML IV.SOLN IVC SCH ×2 (03:49→22:04)
[2021-01-12] MEDS: Insulin LISPRO 300 UNITS/3 ML VIAL SUBQ SCH ×4 (07:54→20:08)
[2021-01-12] MEDS: Aspirin Enteric Coated 81 MG Tablet PO SCH (09:02)
[2021-01-12] MEDS: Loratadine 10 MG TABLET PO SCH (09:02)
[2021-01-12] MEDS: lisinopriL 5 MG TABLET PO SCH (09:03)
[2021-01-12] MEDS: Ascorbic Acid 500 MG TABLET PO SCH ×2 (09:03→20:43)
[2021-01-12] MEDS: allopurinoL 100 MG TABLET PO SCH ×2 (09:03→20:43)
[2021-01-12] MEDS: Zinc Sulfate 220 MG CAPSULE PO SCH (09:03)
[2021-01-12] MEDS: Sennosides/Docusate Sodium TABLET PO SCH ×2 (09:03→20:43)
[2021-01-12] MEDS: Furosemide 40 MG/4 ML VIAL IVP SCH (09:03)
[2021-01-12] MEDS: Cholecalciferol (D-3) 1,000 UNIT (25MCG) TABLET PO SCH (09:03)
[2021-01-12] MEDS: Dexamethasone Sodium Phos/PF 10 MG/ML VIAL IVP SCH (09:03)
[2021-01-12] MEDS: Insulin DETEMIR 100 UNIT/ML X5UNITS SUBQ SCH (09:04)
[2021-01-12] MEDS ORDERED: Lidocaine -MPF 1% 5 ML AMPUL INFILT ONE (11:42)
[2021-01-12 12:08] LABS: Phosphorous 4.3 mg/dL (2.7-4.5)
[2021-01-12] MEDS ORDERED: D10% in Water 500 ML IVC PRN (12:27)
[2021-01-12] MEDS: levoFLOXacin 750 MG/150 ML 750 MG/150 ML BAG IVPB SCH (14:35)
[2021-01-12] MEDS ORDERED: Dexamethasone Sodium Phos/PF 10 MG/ML VIAL IVP ONE (14:45)
[2021-01-12] MEDS ORDERED: Clinimix E 5%-20% SOLUTION 2,000 ML with MVI, adult with vitamin K 10 ML IVC SCH (17:00)
[2021-01-12] MEDS ORDERED: Dexmedetomidine HCl 400 MCG/100 ML MLS IVC SCH (22:15)
[2021-01-12] MEDS ORDERED: *HR* Succinylcholine 200 MG/10 ML VIAL IVP ONE (23:39)
[2021-01-12] MEDS ORDERED: *HR* Rocuronium Bromide 50 MG/5 ML VIAL IVP ONE (23:39)
[2021-01-12] MEDS ORDERED: *HR* Midazolam HCl 2 MG/2 ML VIAL IVP ONE (23:39)
[2021-01-12] MEDS ORDERED: *HR* Propofol 200 MG/20 ML VIAL IVP ONE (23:39)
[2021-01-12] MEDS ORDERED: Norepinephrine 4 MG/254 ML IV.SOLN IVC SCH (23:45)
[2021-01-12] MEDS ORDERED: Midazolam HCl 50 MG/100 ML IV.SOLN IVC SCH (23:45)
[2021-01-13] MEDS: Insulin LISPRO 300 UNITS/3 ML VIAL SUBQ SCH ×5 (00:06→16:10)
[2021-01-13 00:08] LABS: ABG Base Excess 1 mEq/L (-2 to 3); ABG HCO3 25 mEq/L (21-27); ABG Oxygen Saturation 81 % (95-98); ABG PCO2 38 mmHg (35-45); ABG PH 7.43 pH Units (7.32-7.45); ABG PO2 44 mmHg (85-104); ABG TCO2 26 mEq/L (20-26); Blood Gas VT 480 cc
[2021-01-13] MEDS ORDERED: Artificial Tears SOLN 15 ML BOTTLE BOTH EYES PRN (00:26)
[2021-01-13] MEDS: FentaNYL (PF) 1,000 MCG/100 ML IV.SOLN IVC SCH ×3 (00:35→20:08)
[2021-01-13] MEDS: Cisatracurium 200 MG in 0.9 % Sodium Chloride 180 ML IVC SCH ×3 (00:35→21:59)
[2021-01-13 01:26] LABS: ABG Base Excess 1 mEq/L (-2 to 3); ABG HCO3 30 mEq/L (21-27); ABG Oxygen Saturation 94 % (95-98); ABG PCO2 64 mmHg (35-45); ABG PH 7.28 pH Units (7.32-7.45); ABG PO2 82 mmHg (85-104); ABG TCO2 32 mEq/L (20-26); Blood Gas VT 400 cc
[2021-01-13] MEDS: Artificial Tears SOLN 15 ML BOTTLE BOTH EYES SCH ×5 (03:20→21:16)
[2021-01-13] MEDS: Ipratropium 1 PUFF INHALER IH SCH ×6 (03:32→22:49)
[2021-01-13 04:15] LABS: Red Blood Count 4.22 M/mcL (4.19-5.50); Red Cell Distribution Width 14.1 % (11.5-14.5)
[2021-01-13 04:17] LABS: Hematocrit 40.5 % (37.5-50.1); Mean Corpuscular HGB Conc 32.1 g/dL (31.6-35.5); Mean Corpuscular Hemoglobin 30.8 pg (28.0-33.3); Mean Platelet Volume 10.5 fL (9.4-12.4); Platelet Count 389 K/mcL (140-400)
[2021-01-13 04:24] LABS: White Blood Count 34.2 K/mcL (4.3-11.1)
[2021-01-13 04:28] LABS: Albumin 3.4 g/dL (3.5-5.7); BUN/Creatinine Ratio 45 (6-26); Bilirubin,Direct 0.2 mg/dL (0.0-0.2); Bilirubin,Indirect 0.3 mg/dL (0.0-1.0); Bilirubin,Total 0.5 mg/dL (0.3-1.0); Blood Urea Nitrogen 42 mg/dL (6-20); Calcium 8.8 mg/dL (8.6-10.3); Carbon Dioxide 28 mEq/L (23-29); Chloride 99 mEq/L (98-107); Globulin 3.3 g/dL (2.4-3.5); Glucose 309 mg/dL (70-105); Magnesium 2.9 mg/dL (1.6-2.6); Osmolality,Calculated 302 (280-300); Phosphorous 6.3 mg/dL (2.7-4.5); Potassium 4.6 mEq/L (3.5-5.1); Sodium 135 mEq/L (136-145); Total Protein 6.7 g/dL (6.4-8.9); Triglycerides 482 mg/dL (< 150); eGFR For African Americans > 60 (> 60); eGFR For Non-African Americans > 60 (> 60)
[2021-01-13 04:37] LABS: Lymphocytes # 1.4 K/mcL (0.6-4.6); Neutrophils # 30.1 K/mcL (1.6-8.9); Platelet Estimate Normal (Normal); Smudge Cells Present (Not Present)
[2021-01-13 04:38] LABS: Anisocytosis 1+ (Not Present)
[2021-01-13 04:46] LABS: ABG Base Excess 0 mEq/L (-2 to 3); ABG HCO3 31 mEq/L (21-27); ABG Oxygen Saturation 87 % (95-98); ABG PCO2 82 mmHg (35-45); ABG PH 7.19 pH Units (7.32-7.45); ABG PO2 69 mmHg (85-104); ABG TCO2 33 mEq/L (20-26); Blood Gas VT 400 cc
[2021-01-13 05:50] LABS: ABG Base Excess -1 mEq/L (-2 to 3); ABG HCO3 29 mEq/L (21-27); ABG Oxygen Saturation 88 % (95-98); ABG PCO2 73 mmHg (35-45); ABG PH 7.21 pH Units (7.32-7.45); ABG PO2 68 mmHg (85-104); ABG TCO2 31 mEq/L (20-26); Blood Gas VT 450 cc
[2021-01-13] MEDS ORDERED: *HR* LORazepam 2 MG/ML VIAL IVP ONE (07:37)
[2021-01-13] MEDS ORDERED: Vancomycin 1,750 MG in 0.9 % Sodium Chloride 250 ML IVPB SCH (08:00)
[2021-01-13] MEDS: Chlorhexidine Rinse 15 ML MOUTHWASH MM SCH ×2 (08:47→21:16)
[2021-01-13] MEDS: Ascorbic Acid 500 MG TABLET PO SCH ×2 (08:48→21:16)
[2021-01-13] MEDS: Piperacillin/Tazobactam 3.375 GM in 0.9 % Sodium Chloride Mini Bag 100 ML IVPB SCH ×2 (08:51→15:30)
[2021-01-13] MEDS: allopurinoL 100 MG TABLET PO SCH ×2 (08:54→21:16)
[2021-01-13] MEDS: Cholecalciferol (D-3) 1,000 UNIT (25MCG) TABLET PO SCH (08:54)
[2021-01-13] MEDS: Loratadine 10 MG TABLET PO SCH (08:54)
[2021-01-13] MEDS: Zinc Sulfate 220 MG CAPSULE PO SCH (08:55)
[2021-01-13] MEDS: Insulin DETEMIR 100 UNIT/ML X5UNITS SUBQ SCH (08:55)
[2021-01-13] MEDS: Aspirin Enteric Coated 81 MG Tablet PO SCH (08:55)
[2021-01-13] MEDS ORDERED: Pantoprazole 40 MG VIAL IVP SCH (09:00)
[2021-01-13] MEDS ORDERED: Dexamethasone Sodium Phos/PF 10 MG/ML VIAL IVP SCH (09:00)
[2021-01-13] MEDS ORDERED: Furosemide 40 MG/4 ML VIAL IVP SCH (09:00)
[2021-01-13] MEDS: Vancomycin 1,750 MG/517.5 ML IV.SOLN IVPB SCH ×2 (09:38→21:16)
[2021-01-13 10:15] LABS: Bilirubin,Urine Negative (Negative); Blood,Urine Large (Negative); Clarity,Urine Ex.Turbid (Clear); Color,Urine Yellow (Yellow); Glucose,Urine (UA) 50 mg/dL (Normal); Ketones,Urine Negative (Negative); Leukocyte Esterase,Urine Negative (Negative); Nitrite,Urine Negative (Negative); Protein,Urine 70 mg/dL (Neg-Trace); Specific Gravity,Urine > 1.030 (1.010-1.025); Urobilinogen,Urine Normal (Normal)
[2021-01-13 10:46] LABS: Squamous Epithelial Cell,Urine Few per hpf (None-Few)
[2021-01-13 10:48] LABS: Amorphous Sediment,Urine Moderate per hpf (None-Few)
[2021-01-13 10:49] LABS: Bacteria,Urine Few per hpf (None-Few); Calcium Oxalate Crystals,Urine Present; Hyaline Casts,Urine Few per lpf (None Seen); WBC,Urine 0-3 per hpf (0-3)
[2021-01-13 10:50] LABS: Granular Casts,Urine Few per lpf (None Seen)
[2021-01-13] MEDS ORDERED: 0.9 % Sodium Chloride 1,000 ML ONE ×2 (11:13→23:08)
[2021-01-13 12:08] LABS: ABG Base Excess 0 mEq/L (-2 to 3); ABG HCO3 29 mEq/L (21-27); ABG Oxygen Saturation 92 % (95-98); ABG PCO2 70 mmHg (35-45); ABG PH 7.22 pH Units (7.32-7.45); ABG PO2 78 mmHg (85-104); ABG TCO2 31 mEq/L (20-26); Blood Gas VT 450 cc
[2021-01-13] MEDS: Phenylephrine 10 MG in 0.9 % Sodium Chloride 250 ML IVC SCH ×2 (12:22→14:15)
[2021-01-13] MEDS: levoFLOXacin 750 MG/150 ML 750 MG/150 ML BAG IVPB SCH (13:55)
[2021-01-13] MEDS: Heparin 25,000UNIT/250ML 1/2NS 25,000 UNIT/250 ML IV.SOLN IVC SCH (15:30)
[2021-01-13] MEDS ORDERED: Phenylephrine 20 MG in 0.9 % Sodium Chloride 250 ML IVC SCH (15:45)
[2021-01-13] MEDS ORDERED: Clinimix E 5%-20% SOLUTION 2,000 ML with MVI, adult with vitamin K 10 ML IVC SCH (17:00)
[2021-01-13] MEDS ORDERED: Phenylephrine 50 MG in 0.9 % Sodium Chloride 250 ML IVC SCH (19:30)
[2021-01-13 20:18] LABS: ABG Base Excess -1 mEq/L (-2 to 3); ABG HCO3 27 mEq/L (21-27); ABG Oxygen Saturation 94 % (95-98); ABG PCO2 64 mmHg (35-45); ABG PH 7.24 pH Units (7.32-7.45); ABG PO2 86 mmHg (85-104); ABG TCO2 29 mEq/L (20-26); Blood Gas VT 450 cc
[2021-01-13 22:04] VITALS: BP 83/61
[2021-01-14] MEDS ORDERED: Clinimix E 5%-20% SOLUTION 2,000 ML with MVI, adult with vitamin K 10 ML IVC SCH (17:00)
== END 2021-01-13 23:40 | disposition short-term general hospital (02) | DRG 208 ==
LOC: EMEROOARM 16:56 → 2NENU 16:56 → SUATTDRO 12-31 16:33 → ICNU 01-12 12:56
PROVIDERS: ADMIT Internal Medicine; ATTEND Pharmacist